=== PATIENT | female | born 1990 | race African-American/Black ===

== ENCOUNTER 2016-12-05 14:22 | Emergency (ER) | payer OTHER ==
[2016-12-05 15:28] LABS: Hematocrit 38.6 % (36.0-47.0); Mean Platelet Volume 8.6 fL (7.4-10.4); White Blood Cell (WBC) Count 3.6 thou/uL (4.8-10.8)
[2016-12-05 15:50] LABS: ALT (SGPT) 8 U/L (8-55); AST (SGOT) 15 U/L (5-34); Alkaline Phosphatase 65 U/L (40-150); Anion Gap 10 mmol/L (10-20); Anisocytosis SLIGHT = 6-15 cells (100X) (0-5/hpf); Bilirubin, Total 0.3 mg/dL (0.2-1.2); Calc. Creatinine Clearance 0 mL/min (70-130); Calcium 9.5 mg/dL (7.8-10.44); Carbon Dioxide 25 mmol/L (22-29); Chloride 106 mmol/L (98-107); Estimated GFR-MDRD Greater than 90; Globulin 3.4 g/dL (2.4-3.5); Hypochromia SLIGHT = 6-15 cells (100X) (0-5/hpf); Neutrophil 35 % (42-75); Protein, Total 7.8 g/dL (6.0-8.3)
[2016-12-05 16:02] LABS: BUN (Urea Nitrogen) 11 mg/dL (7.0-18.7)
[2016-12-05 18:33] LABS: Bilirubin Small (Negative); Blood, Urine Large (Negative); Glucose, Urine (Dipstick) Negative (Negative); Ketone, Urine 40 mg/dL (Negative); Nitrite Negative (Negative); Protein, Urine (Dipstick) 30 mg/dL (Neg-Trace); Urobilinogen 0.2 mg/dL (0.2-1.0)
[2016-12-05 18:35] LABS: Bacteria/HPF Rare-Few HPF (None Seen); Hyaline Casts/LPF 4-6 HYALINE CAST LPF (0-3 Hyaline); RBC/HPF GREATER THAN 50-TNTC HPF (0-3); WBC/HPF 21-50 HPF (0-3)
== END 2016-12-05 19:16 | disposition home or self-care (01) ==
LOC: ERS 14:22
DX: N30.90 Cystitis, unspecified without hematuria (principal); R42 Dizziness and giddiness; M41.9 Scoliosis, unspecified
CPT/HCPCS: 36415; 80053; 81003; 81015; 84703; 85025; 99284

== ENCOUNTER 2017-04-10 11:25 | Emergency (ER) | payer OTHER | END 2017-04-10 13:00 | disposition left against medical advice (07) | LOC: ERS 11:25 | DX: Z53.21 Procedure and treatment not carried out due to patient leaving prior to being seen by health care provider (principal) ==

== ENCOUNTER 2018-06-07 08:58 | Emergency (ER) | payer OTHER ==
[2018-06-07 09:44] LABS: Bilirubin Negative (Negative); Blood, Urine Trace (Negative); Clarity CLEAR (Clear); Glucose, Urine (Dipstick) Negative (Negative); Leukocyte Negative (Negative); Nitrite Negative (Negative); Protein, Urine (Dipstick) Negative (Neg-Trace); Urobilinogen 0.2 mg/dL (0.2-1.0)
[2018-06-07 09:45] LABS: Bacteria/HPF None Seen HPF (None Seen); Hyaline Casts/LPF 0-3 HYALINE CAST LPF (0-3 Hyaline); Squamous Epithelial 0-3 HPF (0-3); WBC/HPF 0-3 HPF (0-3)
[2018-06-07 10:08] LABS: Pregnancy Test - Urine (BHCG) Negative (Negative); Pregu Control Background? CLEAR/WHITE (CLR/WHITE); Pregu Control Bar Appear? YES (CONTROL BAR)
== END 2018-06-07 10:31 | disposition home or self-care (01) ==
LOC: ERS 08:58
DX: R10.9 Unspecified abdominal pain (principal); F32.9 Major depressive disorder, single episode, unspecified; F17.210 Nicotine dependence, cigarettes, uncomplicated
CPT/HCPCS: 81003; 81015; 81025; 99284

== ENCOUNTER 2020-02-12 12:21 | Emergency (ER) | payer OTHER ==
[~2020-02-12 12:21] MED LIST: Iopamidol-370 76% 500 ML 1 ML ONE
[2020-02-12 13:52] LABS: #Lymphocytes 1.4 thou/uL (1.20-3.40); #Monocytes 0.3 thou/uL (0.11-0.59); #Neutrophils 6.4 thou/uL (1.40-6.50); %Basophils 0.4 % (0.0-1.0); %Eosinophils 0.4 % (0.0-10.0); %Lymphocytes 17.3 % (21.0-51.0); %Monocytes 3.6 % (0.0-10.0); %Neutrophils 78.4 % (42.0-75.0); Hemoglobin 11.8 g/dL (12.0-16.0); Mean Corpuscular HGB CONC 34.1 g/dL (32.0-36.0); Mean Corpuscular Hemoglobin 29.8 pg (27.0-31.0); Mean Corpuscular Volume 87.3 fL (78.0-98.0); Mean Platelet Volume 8.8 fL (7.4-10.4); Platelet Count 217 thou/uL (130-400); RBC Distribution Width 13.7 % (11.5-14.5); Red Blood Cell (RBC) Count 3.96 mill/uL (4.20-5.40); White Blood Cell (WBC) Count 8.2 thou/uL (4.8-10.8)
[2020-02-12 13:57] LABS: Bilirubin Negative (Negative); Blood, Urine 3+ (Negative); Clarity Turbid (Clear); Glucose, Urine (Dipstick) Normal (Negative); Ketone, Urine Negative (Negative); Leukocyte 75 Leu/uL (Negative); Nitrite Negative (Negative); Protein, Urine (Dipstick) 30 mg/dL (Neg-Trace); RBC/HPF Greater than 50 HPF (0-3); Specific Gravity, Urine 1.031 (1.002-1.036); Urobilinogen Normal mg/dL (Less than 2); pH, Urine 5.5 (5.0-9.0)
[2020-02-12 13:58] LABS: Bacteria/HPF 1+ HPF (None Seen); Pregnancy Test - Urine (BHCG) Negative (Negative); Pregu Control Background? CLEAR/WHITE (CLR/WHITE); Pregu Control Bar Appear? YES (CONTROL BAR); Specific Gravity 1.031 (1.002-1.036)
[2020-02-12 14:09] LABS: ALT (SGPT) 9 U/L (8-55); AST (SGOT) 14 U/L (5-34); Albumin 4.3 g/dL (3.5-5.0); Alkaline Phosphatase 48 U/L (40-110); Anion Gap 13 mmol/L (10-20); BUN (Urea Nitrogen) 14 mg/dL (7.0-18.7); Bilirubin, Total 0.3 mg/dL (0.2-1.2); Calc. Creatinine Clearance 0 mL/min (70-130); Carbon Dioxide 25 mmol/L (22-29); Chloride 105 mmol/L (98-107); Globulin 3.3 g/dL (2.4-3.5); Glucose 118 mg/dL (70-105); Potassium 3.6 mmol/L (3.5-5.1); Protein, Total 7.6 g/dL (6.0-8.3); Sodium 139 mmol/L (136-145)
--- NOTE | 2020-02-12 14:51 | CT ---
CTA Angio Chest W WO Con History: Chest pain Comparison: None. Findings: CT angiogram chest performed after the intravenous administration of contrast. 3-D renderin g provided. No proximal segmental pulmonary arterial filling defect. No pericardial effusion. Aortic contour is n ormal. No acute abnormality within the upper abdomen. Lungs are clear. No pneumothorax or effusion. Thoracic spine is intact. Sternum and manubrium are intact. No acute displaced rib fracture. Impression: No pulmonary embolism or other acute intrathoracic abnormality.
== END 2020-02-12 16:03 | disposition home or self-care (01) ==
LOC: ERS 12:21
DX: R20.0 Anesthesia of skin (principal)
CPT/HCPCS: 71275; 80053; 81003; 81015; 81025; 84443; 85025; 85379; 93005; Q9967

== ENCOUNTER 2020-02-14 10:21 | Emergency (ER) | payer OTHER | END 2020-02-14 11:06 | disposition home or self-care (01) | LOC: ERS 10:21 | DX: T78.40XA Allergy, unspecified, initial encounter (principal); M41.9 Scoliosis, unspecified | CPT/HCPCS: 99283 ==

== ENCOUNTER 2020-04-17 11:53 | Emergency (ER) | payer OTHER | END 2020-04-17 12:31 | disposition home or self-care (01) | LOC: ERS 11:53 | DX: M79.672 Pain in left foot (principal); M79.671 Pain in right foot | CPT/HCPCS: 99283 ==